=== PATIENT | female | born 1965 | race Caucasian/White ===

== ENCOUNTER → 2021-02-06 08:53 | Outpatient (BNVA) | payer BC, SELFPAY | PROVIDERS: Visit Provider Surgery ==

== ENCOUNTER 2021-02-24 10:13 | Outpatient (REF) | payer BC, SELFPAY ==
[2021-02-24 11:39] LABS: Blood Urea Nitrogen 9 mg/dL (9-16); Estimated Glomerular Filt Rate > 60
== END 2021-02-24 10:14 | disposition home or self-care (01) ==
LOC: HO.LAB 10:13
PROVIDERS: Visit Provider Physician Assistant
DX: R19.03 Right lower quadrant abdominal swelling, mass and lump (principal)
CPT/HCPCS: 36415; 82565; 84520

== ENCOUNTER 2021-03-01 10:48 | Outpatient (REF) | payer BC, SELFPAY ==
--- NOTE | ~2021-03-01 | CT_ITS ---
EXAMINATION: CT ABDOMEN AND PELVIS WITH CONTRAST CLINICAL INFORMATION: Periumbilical pain COMPARISON: None TECHNIQUE: Multidetector volumetric images were obtained from the superior aspect of the liver through the pubic symphysis following administration 85 mL of Omnipaque 350 intravenous contrast. Sagittal and coronal reformatted images were obtained on the technologist's workstation. Oral contrast: Yes This CT examination was performed using dose optimization techniques as appropriate, variously including the following: *Automated exposure control *Adjustment of mA and/or kV according to patient size (this includes techniques or standardized protocols for targeted exams where dose is matched to indication/reason for exam; i.e. extremities or head) *Use of iterative reconstruction technique DLP: 574 mGy-cm FINDINGS: LUNG BASES: The visualized lung bases are unremarkable. LIVER, GALLBLADDER, AND BILIARY TREE: The liver is normal in size, shape, and attenuation. No focal hepatic lesion or biliary ductal dilatation is present. The gallbladder is unremarkable with no evidence of radiopaque gallstones, gallbladder wall thickening, or obvious pericholecystic inflammatory changes. PANCREAS: Unremarkable. SPLEEN: Unremarkable. ADRENAL GLANDS: Unremarkable. KIDNEYS AND URETERS: There is a small 1 cm cyst exophytic to the lateral midpole of the right kidney. The kidneys are otherwise unremarkable. BLADDER: Unremarkable. GASTROINTESTINAL TRACT: The small and large bowel are unremarkable. The appendix is unremarkable. There are postsurgical changes from gastric sleeve procedure. ABDOMINAL WALL: There is a small upper midline ventral hernia containing fat. There is diastasis of the rectus muscles. There is a small umbilical hernia containing fat. There is are larger low midline ventral hernias containing fat. The hernia sac protrudes to the right and left of midline. Larger right-sided hernia measures 7.5 x 8 x 3 cm in transverse and longitudinal and AP dimension. Smaller left hernia measures 3.5 x 3.5 x 1.5 cm in sagittal, transverse and AP dimension. LYMPH NODES: Normal. VASCULAR: Unremarkable. PELVIC VISCERA: There are prominent left pelvic vessels questionable for pelvic congestion. Uterus and adnexa are otherwise unremarkable. OSSEOUS STRUCTURES: Unremarkable. CT/CT abdomen pelvis w con IMPRESSION: Postsurgical changes from gastric sleeve procedure. Multiple abdominal wall hernias containing fat. Prominent left ovarian vein questionable for pelvic congestion.
== END 2021-03-01 10:49 | disposition home or self-care (01) ==
LOC: HO.CT 10:48
PROVIDERS: Visit Provider Surgery
DX: R10.33 Periumbilical pain (principal); R19.03 Right lower quadrant abdominal swelling, mass and lump
CPT/HCPCS: 74177

== ENCOUNTER → 2021-03-02 13:06 | Outpatient (BNVA) | payer BC, SELFPAY | PROVIDERS: Visit Provider Surgery ==